=== PATIENT | male | born 1940 | race Caucasian/White ===

== ENCOUNTER → 2016-10-18 | Outpatient (REF) ==
[~2016-10-18] MED LIST: ATIVAN 0.50.5 MG/TAB PO; CALCIUM 1200 W/1 SGL PO; CALCIUM CITRAT950 MG; CEPHALEXIN500 M1 PO; CIPRO 500MG TA500 MG PO; DOXAZOSIN2 MG PO; FLOMAX 0.40.4 MG/CAP PO; LEVAQUIN; LIPITOR20 MG PO; PRILOSEC 20MG20 MG PO; SYSTANE LUBRICAN5 ML OP; ZOFRAN 4MG T4 MG/TAB PO
== END ==
LOC: ZLAB.WCH 14:57
DX: Z01.89 Encounter for other specified special examinations (principal)
CPT/HCPCS: G0103

== ENCOUNTER → 2016-12-20 | Outpatient (REF) ==
[2016-12-20 17:27] LABS: THYROID STIMULATING HORMONE 4.37 uIU/mL (0.465-4.680)
[2016-12-20 17:46] LABS: PSA-TOTAL 10.1 ng/mL (0-4)
== END ==
LOC: ZLAB.WCH 15:26
PROVIDERS: Internal Medicine
DX: Z01.89 Encounter for other specified special examinations (principal)
CPT/HCPCS: G0103

== ENCOUNTER 2017-04-02 08:03 | Emergency (ER) | payer MEDICARE, BC ==
[~2017-04-02] VITALS: Ht 177.8 cm; Wt 77.3 kg
[~2017-04-02 08:03] MED LIST changes: -ATIVAN 0.50.5 MG/TAB PO; -CALCIUM CITRAT950 MG; -CEPHALEXIN500 M1 PO; -ZOFRAN 4MG T4 MG/TAB PO
[2017-04-02 08:05] VITALS: TEMP 96.7
[2017-04-02] MEDS ORDERED: CALCIUM CITRAT950 MG (08:12)
[2017-04-02 08:42] LABS: BASO % 0.2 % (0.0-2.0); EOS # 0.2 (0.0-0.7); EOS % 3.7 % (0-4.0); GRAN # 2.8 (1.4-6.5); GRAN % 70.2 % (42.2-75.2); HEMATOCRIT 42.6 % (42.0-52.0); HEMOGLOBIN 14.4 g/dl (13.5-18.0); LYMPH # 0.9 (1.2-3.4); LYMPH % 21.2 % (20.0-51.0); MEAN CELL VOLUME 93 fl (80.0-100.0); MEAN CORPUSCULAR HEMOGLOBIN 31 pg (27.0-31.0); MEAN CORPUSCULAR HGB CONC 34 g/dl (33.0-37.0); MEAN PLATELET VOLUME 9.8 fl (7.4-10.4); MONO # 0.2 (0.1-0.6); MONO % 4.5 % (1.7-9.3); PLATELET COUNT 116 K/mm3 (130-400); REDCELL DISTRIBUTION WIDTH-CV 12.8 % (11.5-14.5)
[2017-04-02 08:55] LABS: ADJUSTED CALCIUM 8.8 mg/dL (8.4-10.2); ALANINE AMINOTRANSFERASE 28 U/L (21-72); ALBUMIN 3.7 gm/dL (3.5-5.0); ALKALINE PHOSPHATASE 64 U/L (50-136); ANION GAP 7 mmol/L (7-16); BILIRUBIN,TOTAL 0.9 mg/dL (0.0-1.0); BLOOD UREA NITROGEN 21 mg/dL (9-20); CALCIUM 8.6 mg/dL (8.4-10.2); CARBON DIOXIDE 26 mmol/L (22-30); CHLORIDE 102 mmol/L (98-107); CREATININE, serum 1.06 mg/dL (0.66-1.25); GLUCOSE 114 mg/dL (74-106); POTASSIUM 4.2 mmol/L (3.4-5.0); SODIUM 135 mmol/L (137-145); TOTAL PROTEIN 6.5 gm/dL (6.4-8.2)
[2017-04-02 08:57] LABS: C-REACTIVE PROTEIN < 0.5 mg/dL (0.0-0.9)
[2017-04-02 09:25] LABS: TROPONIN-I < 0.012 ng/mL (0.000-0.034)
[2017-04-02] MEDS ORDERED: ATIVAN 0.50.5 MG/TAB PO (09:42)
[2017-04-02] MEDS ORDERED: ZOFRAN 4MG T4 MG/TAB PO (09:42)
[2017-04-02 10:11] VITALS: BP 135/72; PULSE 53
== END 2017-04-02 10:49 | disposition home or self-care (01) ==
LOC: COL.ER 08:03
PROVIDERS: Emergency Medicine
DX: I44.1 Atrioventricular block, second degree (principal); E78.5 Hyperlipidemia, unspecified; K21.9 Gastro-esophageal reflux disease without esophagitis
CPT/HCPCS: J2060; J7030

== ENCOUNTER 2017-04-25 07:33 | Day surgery (SDC) | payer MEDICARE, BC ==
[~2017-04-25] VITALS: Ht 177.8 cm; Wt 75.9 kg
[2017-04-25] VITALS (8 sets, daily range): BP systolic 128–148; BP diastolic 67–88; PULSE 58–71; TEMP 97.7–98
[~2017-04-25 07:33] MED LIST changes: +ATIVAN 0.50.5 MG/TAB PO; +CALCIUM CITRAT950 MG; +ZOFRAN 4MG T4 MG/TAB PO
[2017-04-25 08:22] LABS: HEMOGLOBIN 15.7 g/dl (13.5-18.0); MEAN CELL VOLUME 93 fl (80.0-100.0); MEAN CORPUSCULAR HEMOGLOBIN 32 pg (27.0-31.0); MEAN CORPUSCULAR HGB CONC 34 g/dl (33.0-37.0); MEAN PLATELET VOLUME 9.8 fl (7.4-10.4); PLATELET COUNT 138 K/mm3 (130-400); RED BLOOD COUNT 4.96 M/mm3 (4.20-5.60); REDCELL DISTRIBUTION WIDTH-CV 12.8 % (11.5-14.5); WHITE BLOOD COUNT 4.2 K/mm3 (4.8-10.8)
[2017-04-25 08:27] LABS: PROTHROMBIN TIME 11.1 SECONDS (9.7-12.8)
[2017-04-25 08:32] LABS: CALCIUM 9.1 mg/dL (8.4-10.2); CREATININE, serum 1.03 mg/dL (0.66-1.25); POTASSIUM 4.3 mmol/L (3.4-5.0)
[2017-04-26 00:09] VITALS: BP 121/75; PULSE 61; TEMP 98.2
[2017-04-26 04:12] VITALS: BP 126/71; PULSE 60; TEMP 98.2
[2017-04-26 07:27] VITALS: BP 139/77; PULSE 62; TEMP 97.2
[2017-04-26] MEDS ORDERED: CEPHALEXIN500 M1 PO (09:44)
== END 2017-04-26 10:22 | disposition home or self-care (01) ==
LOC: EUO 07:33 → MEDICAL 10:44 → EUO 04-26 10:22
PROVIDERS: Internal Medicine Cardiovascular Disease
DX: R00.1 Bradycardia, unspecified (principal); I44.1 Atrioventricular block, second degree; E78.2 Mixed hyperlipidemia; K21.9 Gastro-esophageal reflux disease without esophagitis; Z82.49 Family history of ischemic heart disease and other diseases of the circulatory system
CPT/HCPCS: OP; C1769; C1785; C1894; C1898; J0690; J2250; J3010; J7030

== ENCOUNTER → 2017-10-31 | Outpatient (REF) ==
[~2017-10-31] MED LIST changes: +CEPHALEXIN500 M1 PO
== END ==
LOC: ZLAB.WCH 18:02
DX: Z01.89 Encounter for other specified special examinations (principal)
CPT/HCPCS: G0103

== ENCOUNTER → 2017-12-22 | Outpatient (REF) ==
[2017-12-22 16:49] LABS: PSA-TOTAL 11.4 ng/mL (0-4)
[2017-12-22 17:18] LABS: THYROID STIMULATING HORMONE 4.77 uIU/mL (0.465-4.680)
== END ==
LOC: ZLAB.WCH 15:51
PROVIDERS: Internal Medicine
DX: Z01.89 Encounter for other specified special examinations (principal)
CPT/HCPCS: G0103

== ENCOUNTER → 2018-10-25 | Outpatient (REF) | LOC: ZLAB.WCH 16:18 | DX: Z01.89 Encounter for other specified special examinations (principal) | CPT/HCPCS: G0103 ==

== ENCOUNTER → 2018-12-25 | Outpatient (REF) | LOC: ZLAB.WCH 09:55 | DX: Z01.89 Encounter for other specified special examinations (principal) | CPT/HCPCS: G0103 ==

== ENCOUNTER → 2021-09-09 | Outpatient (CLI) | payer MEDICARE, BC | LOC: COL.RAD 13:31 | DX: M16.12 Unilateral primary osteoarthritis, left hip (principal) | CPT/HCPCS: G0260; J3301 ==

== ENCOUNTER 2023-10-26 07:34 | Day surgery (SDC) | payer MEDICARE, BC ==
[~2023-10-26] VITALS: Ht 175.3 cm; Wt 78.1 kg
[2023-10-26] VITALS (7 sets, daily range): BP systolic 119–172; BP diastolic 56–80; PULSE 60–73; TEMP 97–98.1
[~2023-10-26 07:34] MED LIST changes: +LR 1,000 ML IV SCH
[2023-10-26] MEDS ORDERED: LIPITOR20 MG PO (08:07)
[2023-10-26] MEDS ORDERED: PRILOSEC 20MG20 MG PO (08:07)
[2023-10-26] MEDS ORDERED: B-121000 MCG PO (08:08)
[2023-10-26] MEDS ORDERED: CALCIUM CITRAT950 MG PO (08:09)
[2023-10-26] MEDS ORDERED: VITAMIND3 5000 PO (08:10)
[2023-10-26] MEDS ORDERED: SYSTANE GEL EYE10 ML OP (08:11)
[2023-10-26] MEDS ORDERED: CIALIS5 MG PO (08:11)
[2023-10-26] MEDS ORDERED: Lidocaine PF 2% (20 MG/ML) 5 ML VIAL ONE (09:14)
[2023-10-26] MEDS ORDERED: Rocuronium 50 MG/5 ML Multi-Dose VIAL ONE (09:14)
[2023-10-26] MEDS ORDERED: fentaNYL 50 MCG/ML 5 ML VIAL ONE (09:14)
[2023-10-26] MEDS ORDERED: ULTRAM 50MG TAB50 MG PO (10:26)
[2023-10-26] MEDS ORDERED: dexAMETHasone 10 MG/ML VIAL ONE (10:26)
[2023-10-26] MEDS ORDERED: Ondansetron 4 MG/2 ML VIAL ONE (10:26)
[2023-10-26] MEDS ORDERED: Topical Skin Adhesive 1 EACH (1 ML) TOP ONE (10:32)
[2023-10-26] MEDS ORDERED: ePHEDrine 50 MG/ML VIAL ONE (10:33)
[2023-10-26] MEDS ORDERED: Glycopyrrolate 0.2 MG/ML 1 ML VIAL ONE (11:22)
[2023-10-26] MEDS ORDERED: Neostigmine 1 MG/ML 10 ML Multi-Dose Vial ONE (11:22)
[2023-10-26] MEDS ORDERED: Meperidine 50 MG/ML 1 ML VIAL IV PRN (11:30)
[2023-10-26] MEDS ORDERED: hydrALAZINE 20 MG/ML 1 ML VIAL IV PRN (11:30)
[2023-10-26] MEDS ORDERED: Morphine 4 MG/ML VIAL IV PRN (11:30)
[2023-10-26] MEDS ORDERED: Ondansetron 4 MG/2 ML VIAL IV PRN ×2 (11:30→11:45)
[2023-10-26] MEDS ORDERED: fentaNYL 50 MCG/ML 2 ML VIAL IV PRN (11:30)
[2023-10-26] MEDS ORDERED: HYDROmorphone 2 MG/1 ML VIAL IV PRN (11:30)
[2023-10-26] MEDS ORDERED: droPERidol 2.5 MG/ML 2 ML VIAL IV PRN (11:30)
[2023-10-26] MEDS ORDERED: Ibuprofen 600 MG TAB PO PRN (11:45)
[2023-10-26] MEDS ORDERED: Acetaminophen 325 MG TAB PO PRN (11:45)
--- NOTE | 2023-10-26 13:25 | NUR ---
1209 RETURNS TO ROOM 7 PER CART. AWAKE, ALERT. RESP UNLABORED. HOB ELEVATED 40 DEGREES. ABD SOFT. MID ABD INCISION X 3 WITHOUT REDNESS OR DRAINAGE. REPOSITIONS ON CART. VITAL SIGNS OBTAINED. CALL LIGHT AT SIDE. IN ROOM. O2 AT 2L/NC 1220 AWAKE, ALERT. O2 OFF 1235 TOLERATES PO WATER AND ICE CREAM WITHOUT NAUSEA 1250 PO MOTRIN 600 MG GIVEN FOR MILD ABD DISCOMFORT 1255 DISCHARGE INSTRUCTIONS REVIEWED. PATIENT AND VERBALIZE UNDERSTANDING. COPY PROVIDED IN DISCHARGE FOLDER 2580 SITS ON EDGE OF CART. DRESSES SELF, THEN AMBULATES TO BATHROOM WITH STANDBY ASSIST. ADMITS TO VOIDING WITHOUT DIFFICULTY
== END 2023-10-26 13:28 | disposition home or self-care (01) ==
LOC: SDCO 07:34
DX: K40.91 Unilateral inguinal hernia, without obstruction or gangrene, recurrent (principal); K21.9 Gastro-esophageal reflux disease without esophagitis; Z79.899 Other long term (current) drug therapy
CPT/HCPCS: C1781; J0690; J1100; J2405; J2704; J2710; J3010; J7120